=== PATIENT | male | born 1965 | race Caucasian/White ===

== ENCOUNTER 2024-06-09 14:11 | Emergency (ER) | payer OTHER ==
[~2024-06-09] VITALS: Ht 157.5 cm; Wt 71.0 kg
[~2024-06-09 14:11] MED LIST: APIX5TAB PO; ATOR-2 PO; CLOP75TA33 PO; ERTA1VIA3 IJ; EZET10TA81 PO; FAMO20TA8 PO; METH-371 PO; METO25TA6 MT
[2024-06-09 14:15] VITALS: BP 165/88; PULSE 86; RESP 16; TEMP 36.9; O2SAT 99
[2024-06-09 17:53] LABS: CLARITY URINE CLEAR (CLEAR); COLOR URINE YELLOW (YELLOW); GLUCOSE URINE NEGATIVE (NEGATIVE); KETONES URINE NEGATIVE (NEGATIVE); LEUKOCYTE ESTERASE URINE 2+ (NEGATIVE); NITRITE URINE NEGATIVE (NEGATIVE); OCCULT BLOOD URINE TRACE (NEGATIVE); PH URINE 6.5 (4.5-8.0); PROTEIN URINE NEGATIVE (NEGATIVE); SPECIFIC GRAVITY URINE 1.009 (1.005-1.030); UROBILINOGEN URINE 0.2 E.U./dL (0.2-1.0)
[2024-06-09 18:40] LABS: BACTERIA URINE 1+; RBC URINE 0-2 /hpf (0-2); SQUAMOUS EPITHELIAL CELL URINE FEW /lpf (RARE/1+)
[2024-06-09 20:01] LABS: BASOPHILS % 0.4 % (0.0-2.0); EOSINOPHILS % 2.2 % (0.0-5.0); LYMPHOCYTES % 30.6 % (20.0-50.0); MEAN CORPUSCULAR HEMOGLOBIN 31.4 pg (28.0-32.0); MEAN CORPUSCULAR HGB CONC 32.6 g/dL (31.0-37.0); MEAN CORPUSCULAR VOLUME 96.1 fL (80.0-94.0); MEAN PLATELET VOLUME 8.6 fl (7.4-10.4); NEUTROPHILS % 55.8 % (40.0-76.0); PLATELET 270 x1000/uL (130-400); RED BLOOD CELL COUNT 4.48 mill/uL (4.7-6.1); WHITE BLOOD COUNT 7.6 x1000/uL (4.5-11.0)
[2024-06-09 20:14] LABS: CHLORIDE 107 mEq/L (98-107); POTASSIUM 4.3 mEq/L (3.5-5.1); SODIUM 141 mEq/L (136-145)
[2024-06-09 20:15] LABS: CARBON DIOXIDE 28 mEq/L (21-32)
[2024-06-09 20:16] LABS: CALCIUM 9.7 mg/dL (8.7-10.4)
[2024-06-09 20:20] LABS: CREATININE 0.9 mg/dL (0.6-1.3); GLUCOSE 97 mg/dL (70-105); UREA NITROGEN BLOOD 15 mg/dL (9-23)
[2024-06-09] MEDS ORDERED: CEFP100S5 MT (21:24)
== END 2024-06-09 22:19 | disposition home or self-care (01) ==
LOC: ER 14:20
DX: N30.90 Cystitis, unspecified without hematuria (principal); I10 Essential (primary) hypertension; I25.2 Old myocardial infarction; Z79.01 Long term (current) use of anticoagulants; Z79.02 Long term (current) use of antithrombotics/antiplatelets; Z79.899 Other long term (current) drug therapy
CPT/HCPCS: 36415; 74176; 76870; 80048; 81003; 85025; 93976; 99284